=== PATIENT | female | born 2000 | race Two or more races ===

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

== ENCOUNTER 2022-05-18 12:59 | Emergency (ER) | payer OTHER ==
[2022-05-18 14:09] VITALS: BP 110/75; PULSE 77; TEMP 97.9; BMI 26.6
[2022-05-18 16:46] LABS: EPI CELLS 16 /uL (0-25.1); HYALINE CASTS 1 /uL (0-3.1); PH,URINE 5.5 (5.0-8.0); URINE APPEARANCE CLOUDY; URINE BACTERIA 20 /uL (0-1359); URINE BILIRUBIN NEGATIVE (NEGATIVE); URINE COLOR YELLOW; URINE GLUCOSE (UA) NEGATIVE (NEGATIVE); URINE KETONE TRACE (NEGATIVE); URINE LEUK ESTERASE NEGATIVE (NEGATIVE); URINE NITRITE NEGATIVE (NEGATIVE); URINE PROTEIN TRACE (NEGATIVE); URINE RBC 1758 /uL (0-23.9); URINE UROBILINOGEN 0.2 mg/dL (0.2-1.0); URINE WBC 14 /uL (0-25.8)
== END 2022-05-18 18:03 | disposition home or self-care (01) ==
LOC: JERFT 12:59
DX: R59.9 Enlarged lymph nodes, unspecified (principal)
CPT/HCPCS: 81003; 84703; 87086; 99283-25

== ENCOUNTER 2024-06-24 19:53 | Emergency (ER) | payer OTHER ==
[2024-06-24 20:02] VITALS: BP 130/86; PULSE 92; RESP 16; TEMP 98.3; BMI 29.2
[2024-06-24] MEDS ORDERED: ACETAMINOPHEN INJECTION 100 ML IVPB ONE (20:51)
[2024-06-24 20:55] LABS: BASO % 0.4 % (0-2.0); EOS % 0.3 % (0-4.5); HEMATOCRIT 45.3 % (32.4-45.2); HEMOGLOBIN 15.4 GM/dL (10.7-15.3); LYMPH % 25.4 % (8-40); MCH 28.4 pg (25.7-33.7); MCHC 33.9 g/dl (32.0-36.0); MEAN CELL VOLUME 83.9 fl (80-96); NEUT % 68.9 % (42.8-82.8); PLATELET COUNT 272 10^3/uL (134-434); RBC 5.41 M/mm3 (3.60-5.2); RDW 12.6 % (11.6-15.6); WHITE BLOOD COUNT 10.3 K/mm3 (4.0-10.0)
[2024-06-24] MEDS: ACETAMINOPHEN 1000 MG/100 ML BAG IVPB ONE (21:01)
[2024-06-24] MEDS: LACTATED RINGERS SOLUTION 1000 ML INFUS.BAG IV ONE (21:01)
[2024-06-24] MEDS ORDERED: METOCLOPRAMIDE HCL INJECTION 10 MG/2 ML VIAL ONE (21:15)
[2024-06-24] MEDS: METOCLOPRAMIDE HCL INJECTION 10 MG/2 ML VIAL IVPB ONE (21:34)
[2024-06-24 22:06] LABS: POTASSIUM 3.9 mmol/L (3.5-5.1)
[2024-06-24 22:08] LABS: CALCIUM 9.7 mg/dL (8.5-10.1)
[2024-06-24 22:09] LABS: ALBUMIN 4.4 g/dl (3.4-5.0); BLOOD UREA NITROGEN 11.6 mg/dL (7-18)
[2024-06-24 22:12] LABS: CREATININE 0.7 mg/dL (0.55-1.3)
[2024-06-24 22:13] LABS: BILIRUBIN,TOTAL 0.6 mg/dL (0.2-1)
[2024-06-24 22:14] LABS: TOT PROT 7.9 g/dl (6.4-8.2)
== END 2024-06-24 22:36 | disposition home or self-care (01) ==
LOC: JER 19:53 → JERFT 19:53 → JER 22:36
PROC: 3E033NZ Introduction of Analgesics, Hypnotics, Sedatives into Peripheral Vein, Percutaneous Approach (ICD-10-PCS; principal; 2024-06-24)
PROC: 3E033GC Introduction of Other Therapeutic Substance into Peripheral Vein, Percutaneous Approach (ICD-10-PCS; 2024-06-24)
DX: G43.909 Migraine, unspecified, not intractable, without status migrainosus (principal); H53.8 Other visual disturbances; R06.02 Shortness of breath; R00.2 Palpitations; R11.0 Nausea
CPT/HCPCS: 36415; 71046-TC-FY; 80053; 84703; 85025; 93005; 93010; 99285-25; J0131

== ENCOUNTER 2025-01-21 18:20 | Emergency (ER) | payer OTHER ==
[2025-01-21 18:34] VITALS: BP 133/79; PULSE 100; RESP 20; TEMP 98.5; BMI 26.2
[2025-01-21] MEDS ORDERED: ACETAMINOPHEN INJECTION 100 ML ONE (20:17)
[2025-01-21] MEDS: ACETAMINOPHEN 1000 MG/100 ML BAG IVPB ONE (20:30)
[2025-01-21 20:32] LABS: HEMOGLOBIN 13.4 GM/dL (10.7-15.3); MCH 28.2 pg (25.7-33.7); MCHC 33.5 g/dl (32.0-36.0); MEAN CELL VOLUME 84.1 fl (80-96); PLATELET COUNT 258 10^3/uL (134-434); RBC 4.76 M/mm3 (3.60-5.2); RDW 13.8 % (11.6-15.6)
[2025-01-21 20:57] LABS: EPI CELLS 25 /uL (0-25.1); HYALINE CASTS 3 /uL (0-3.1); PH,URINE 5.5 (5.0-8.0); URINE APPEARANCE CLEAR; URINE BACTERIA 1406 /uL (0-1359); URINE BILIRUBIN NEGATIVE (NEGATIVE); URINE COLOR DK YELLOW; URINE GLUCOSE (UA) NEGATIVE (NEGATIVE); URINE KETONE NEGATIVE (NEGATIVE); URINE LEUK ESTERASE TRACE (NEGATIVE); URINE NITRITE NEGATIVE (NEGATIVE); URINE PROTEIN NEGATIVE (NEGATIVE); URINE RBC 17 /uL (0-23.9); URINE UROBILINOGEN 0.2 mg/dL (0.2-1.0); URINE WBC 57 /uL (0-25.8)
[2025-01-21 21:17] LABS: POTASSIUM 3.6 mmol/L (3.5-5.1)
[2025-01-21 21:19] LABS: CALCIUM 8.7 mg/dL (8.5-10.1)
[2025-01-21 21:20] LABS: ALBUMIN 3.4 g/dl (3.4-5.0); BLOOD UREA NITROGEN 10.5 mg/dL (7-18)
[2025-01-21 21:23] LABS: CREATININE 0.6 mg/dL (0.55-1.3)
[2025-01-21 21:25] LABS: BILIRUBIN,TOTAL 0.3 mg/dL (0.2-1); TOT PROT 6.2 g/dl (6.4-8.2)
[2025-01-21 21:30] LABS: ANISOCYTOSIS 1+; MACROCYTOSIS 0
[2025-01-21] MEDS ORDERED: CEPHALEXIN MONOHYDRATE 500 MG CAPSULE (UD) ONE (21:51)
[2025-01-21] MEDS: CEPHALEXIN MONOHYDRATE 500 MG CAPSULE (UD) PO ONE (21:55)
== END 2025-01-21 22:00 | disposition home or self-care (01) ==
LOC: JER 18:20
PROC: 3E033NZ Introduction of Analgesics, Hypnotics, Sedatives into Peripheral Vein, Percutaneous Approach (ICD-10-PCS; principal; 2025-01-21)
DX: O23.41 Unspecified infection of urinary tract in pregnancy, first trimester (principal); O26.891 Other specified pregnancy related conditions, first trimester; R10.30 Lower abdominal pain, unspecified; O99.891 Other specified diseases and conditions complicating pregnancy; R42 Dizziness and giddiness; Z3A.11 11 weeks gestation of pregnancy
CPT/HCPCS: 0241U-QW; 36415; 80053; 81003; 84702; 85025; 86850; 86900; 86901; 87086; 93005; 93010; 96374; 99284-25; J0131